=== PATIENT | male | born 1950 | race African-American/Black ===

== ENCOUNTER 2024-10-11 23:15 | Inpatient (IN) | payer MEDICARE ==
[~2024-10-11] VITALS: Ht 175.3 cm; Wt 72.6 kg
[2024-10-12] VITALS (67 sets, daily range): BP systolic 84–133; BP diastolic 50–109; PULSE 60–124; RESP 13–39; TEMP 36.5–36.9; O2SAT 92–100
[2024-10-12 00:43] LABS: CHLORIDE 102 mEq/L (98-107); POTASSIUM 4.1 mEq/L (3.5-5.1); SODIUM 142 mEq/L (136-145)
[2024-10-12 00:44] LABS: CARBON DIOXIDE 36 mEq/L (21-32)
[2024-10-12 00:45] LABS: CALCIUM 9.3 mg/dL (8.7-10.4)
[2024-10-12 00:46] LABS: BASOPHILS % 0.4 % (0.0-2.0); EOSINOPHILS % 0.5 % (0.0-5.0); LYMPHOCYTES % 29.2 % (20.0-50.0); MEAN CORPUSCULAR HEMOGLOBIN 28.9 pg (28.0-32.0); MEAN CORPUSCULAR VOLUME 93.4 fL (80.0-94.0); MEAN PLATELET VOLUME 10.6 fl (7.4-10.4); MONOCYTES % 8.1 % (2.0-8.0); NEUTROPHILS % 61.8 % (40.0-76.0); PLATELET 149 x1000/uL (130-400); RED CELL DISTRIBUTION WIDTH 13.8 % (11.6-14.6); WHITE BLOOD COUNT 8.7 x1000/uL (4.5-11.0)
[2024-10-12 00:50] LABS: CREATININE 0.6 mg/dL (0.6-1.3); GLUCOSE 113 mg/dL (70-105); UREA NITROGEN BLOOD 9 mg/dL (9-23)
[2024-10-12] MEDS: METHYLPREDNISOLONE SOD SUCC 125MG/2ML (ACT-O-VIAL) IV STA (00:51)
[2024-10-12] MEDS: DILTIAZEM HCL 5MG/ML 5ML VIAL IV ONE ×2 (00:51→02:05)
[2024-10-12 00:52] LABS: TROPONIN I HIGH SENSITIVITY 8 ng/L (3.0-53)
[2024-10-12 01:23] LABS: INR 0.9; PROTHROMBIN TIME 10.2 sec (9.6-11.0)
[2024-10-12] MEDS: SODIUM CHLORIDE 0.9% 1,000 ML IV ONE ×2 (02:04→02:45)
[2024-10-12] MEDS ORDERED: DILTIAZEM HCL 125 MG in DEXT 5% WATER 100 ML IV ONE ×2 (02:45→04:00)
[2024-10-12 03:57] LABS: BG BASE EXCESS 3.1 mmol/L (-2.0-3.0); BG CARBOXYHEMOGLOBIN 1.1 % (0.5-1.5); BG DEOXYHEMOGLOBIN 5.3 % (0.0-5.0); BG FRACTION INSPIRED OXYGEN 36; BG HCO3 ACT 30.9 mmol/L (21.0-28.0); BG OXYGEN SATURATION 94.6 % (94.0-98.0); BG OXYHEMOGLOBIN 93.6 % (94.0-98.0); BG PCO2 62.2 mmHg (35.0-48.0); BG PH 7.314 (7.350-7.450); BG PO2 73.9 mmHg (83.0-108.0); BG SAMPLE SITE LEFT RADIAL; BG VENT MODE NASAL CANNULA
[2024-10-12] MEDS ORDERED: ACETAMINOPHEN 325MG TABLET PO PRN ×2 (04:00)
[2024-10-12] MEDS ORDERED: CLONIDINE 0.1MG TABLET PO PRN (04:00)
[2024-10-12] MEDS ORDERED: AMIODARONE 360MG/200ML 200 ML IV SCH (04:00)
[2024-10-12] MEDS ORDERED: NA PHOS,M-B/NA PHOS,DI-BA ENEMA 118ML PR PRN (04:00)
[2024-10-12] MEDS ORDERED: ENOXAPARIN 40MG/0.4ML SYR SUBCUT SCH (04:00)
[2024-10-12] MEDS ORDERED: ONDANSETRON HCL 4MG/2ML INJ IV PRN (04:00)
[2024-10-12] MEDS ORDERED: AMIODARONE HCL 150 MG in DEXT 5% WATER 100 ML IV ONE (04:00)
[2024-10-12] MEDS ORDERED: MAGNESIUM/ALUMINUM HYDROXIDE/SIMETHICONE 30ML UDC PO PRN (04:00)
[2024-10-12] MEDS: AMIODARONE 150MG/100ML PREMIX IV SCH (04:15)
[2024-10-12] MEDS ORDERED: GUAIFENESIN 200MG/10ML SUGAR FREE UDC PO PRN (04:15)
[2024-10-12] MEDS: AMIODARONE HCL IV SCH (04:50)
[2024-10-12] MEDS: DEXT 5% IV SCH (04:50)
[2024-10-12] MEDS: WATER IV SCH (04:50)
[2024-10-12 05:01] LABS: IRON 51 ug/dL (65-175)
[2024-10-12 05:03] LABS: PHOSPHORUS 2.7 mg/dL (2.5-4.9)
[2024-10-12 05:04] LABS: TOTAL IRON BINDING CAPACITY 68 ug/dl (250-425)
[2024-10-12 05:07] LABS: FOLIC ACID (FOLATE) SERUM 12.73 ng/mL (>5.38)
[2024-10-12] MEDS: MAGNESIUM 1 G PREMIX 100 ML IV NR (05:15)
[2024-10-12] MEDS: ENOXAPARIN 80MG/0.8ML SYR SUBCUT SCH (05:16)
[2024-10-12] MEDS: DILTIAZEM HCL 90MG TABLET PO ONE (05:22)
[2024-10-12] MEDS: NOREPINEPHRINE 8MG/250ML PMX 250 ML IV PRN (05:35)
[2024-10-12] MEDS ORDERED: VASOPRESSIN 20 UNIT in SODIUM CHLORIDE 0.9% 99 ML IV PRN (05:45)
[2024-10-12] MEDS: MIDODRINE HCL 5MG TABLET PO SCH (05:45)
[2024-10-12] MEDS ORDERED: PHENYLEPHRINE 100 MG in DEXT 5% WATER 240 ML IV PRN (05:45)
[2024-10-12] MEDS: METHYLPREDNISOLONE SOD SUCC 40MG/ML (ACT-O-VIAL) IV SCH (07:09)
[2024-10-12] MEDS: AZITHROMYCIN 500MG/250ML 250 ML IV SCH (07:13)
[2024-10-12] MEDS: THEOPHYLLINE ANHYDROUS 80MG/15ML ORAL SYR PO SCH ×2 (07:14→18:04)
[2024-10-12] MEDS: BUDESONIDE 0.5MG/2ML NEB HHN SCH (08:33)
[2024-10-12] MEDS: IPRATROPIUM BROMIDE (0.02%) 0.5MG/2.5ML NEB HHN SCH (08:33)
[2024-10-12] MEDS: FAMOTIDINE 20MG/2ML VIAL IV SCH (09:52)
[2024-10-12] MEDS: TAMSULOSIN HCL 0.4MG SR CAPSULE PO SCH (09:53)
[2024-10-12] MEDS: LORATADINE 10MG TABLET PO SCH (09:53)
[2024-10-12 11:04] LABS: CLARITY URINE CLEAR (CLEAR); COLOR URINE YELLOW (YELLOW); GLUCOSE URINE 3+ (NEGATIVE); KETONES URINE 1+ (NEGATIVE); LEUKOCYTE ESTERASE URINE NEGATIVE (NEGATIVE); NITRITE URINE NEGATIVE (NEGATIVE); OCCULT BLOOD URINE NEGATIVE (NEGATIVE); PH URINE 5.5 (4.5-8.0); PROTEIN URINE NEGATIVE (NEGATIVE); SPECIFIC GRAVITY URINE 1.015 (1.005-1.030); UROBILINOGEN URINE 0.2 E.U./dL (0.2-1.0)
[2024-10-12 11:13] LABS: *AMPHETAMINES SCREEN URINE NEGATIVE (NEGATIVE); *BARBITURATES SCREEN URINE NEGATIVE (NEGATIVE); *BENZODIAZEPINES SCREEN URINE NEGATIVE (NEGATIVE); *COCAINE SCREEN URINE NEGATIVE (NEGATIVE); METHADONE URINE SCREEN NEGATIVE (NEGATIVE); OPIATES URINE SCREEN NEGATIVE (NEGATIVE); PHENCYCLIDINE URINE SCREEN NEGATIVE (NEGATIVE)
[2024-10-12 11:14] LABS: CANNABINOID URINE SCREEN NEGATIVE (NEGATIVE); ECSTASY MDMA SCREEN URINE NEGATIVE (NEGATIVE)
[2024-10-12 11:17] LABS: CREATINE KINASE MB FRACTION 3.1 ng/mL (0.5-3.6)
[2024-10-12 11:37] LABS: RBC URINE 0-2 /hpf (0-2); SQUAMOUS EPITHELIAL CELL URINE NONE SEEN /lpf (RARE/1+)
[2024-10-12 11:38] LABS: BACTERIA URINE TRACE; WBC URINE 0-2 /hpf (0-2)
[2024-10-12] MEDS ORDERED: MONTELUKAST SODIUM 10MG TABLET PO SCH (17:00)
[2024-10-12 17:24] LABS: CREATINE KINASE MB FRACTION 2.7 ng/mL (0.5-3.6)
[2024-10-12] MEDS: PNEUMOCOCCAL 20-VAL CONJ-DIP CRM 0.5ML IM ONE (18:11)
[2024-10-12 18:36] LABS: INFLUENZA TYPE A Presumptive Negative (Pres. Neg.); INFLUENZA TYPE B Presumptive Negative (Pres. Neg.)
[2024-10-12 18:37] LABS: RESPIRATORY SYNCYTIAL VIRUS Not Detected (Not Detectd)
[2024-10-13] VITALS (70 sets, daily range): BP systolic 86–141; BP diastolic 51–111; PULSE 51–103; RESP 14–30; TEMP 36.1–36.9; O2SAT 94–100
[2024-10-13 06:43] LABS: HEMOGLOBIN. 10.3 g/dL (14.0-18.0); MEAN CORPUSCULAR HEMOGLOBIN 28.2 pg (28.0-32.0); MEAN CORPUSCULAR HGB CONC 31.4 g/dL (31.0-37.0); MEAN CORPUSCULAR VOLUME 89.8 fL (80.0-94.0); MEAN PLATELET VOLUME 11.2 fl (7.4-10.4); PLATELET 118 x1000/uL (130-400); RED BLOOD CELL COUNT 3.67 mill/uL (4.7-6.1); RED CELL DISTRIBUTION WIDTH 13.5 % (11.6-14.6)
[2024-10-13 06:51] LABS: CHLORIDE 99 mEq/L (98-107); POTASSIUM 4.8 mEq/L (3.5-5.1); SODIUM 137 mEq/L (136-145)
[2024-10-13 06:52] LABS: CARBON DIOXIDE 29 mEq/L (21-32)
[2024-10-13 06:53] LABS: CALCIUM 9.2 mg/dL (8.7-10.4); DIFFERENTIAL COMMENT 1
[2024-10-13 06:56] LABS: TRIGLYCERIDE 73 mg/dL (0-150)
[2024-10-13 06:57] LABS: CREATININE 0.7 mg/dL (0.6-1.3); GLUCOSE 126 mg/dL (70-105); T4 FREE 0.98 ng/dL (0.89-1.76)
[2024-10-13 06:58] LABS: LDL CHOLESTEROL 83 mg/dL (5-100); UREA NITROGEN BLOOD 12 mg/dL (9-23)
[2024-10-13 06:59] LABS: ALANINE AMINOTRANSFERASE 13 IU/L (10-49); ALBUMIN 3.3 g/dL (3.2-4.8); ASPARTATE AMINOTRANSFERASE 16 IU/L (<34); CHOLESTEROL 159 mg/dL (<200)
[2024-10-13 07:00] LABS: BILIRUBIN DIRECT 0.2 mg/dL (<=3.0); BILIRUBIN TOTAL 0.7 mg/dL (0.1-1.0); HDL CHOLESTEROL 54 mg/dL (>55); PROTEIN TOTAL 5.8 g/dL (6.0-8.3)
[2024-10-13] MEDS: AZITHROMYCIN 500MG/250ML 250 ML IV SCH (08:41)
[2024-10-13] MEDS: AMIODARONE 200MG TABLET PO SCH (08:41)
[2024-10-13] MEDS ORDERED: LORA10TA7 MT (12:02)
[2024-10-13] MEDS ORDERED: PRED5TAB MT (12:02)
[2024-10-13] MEDS ORDERED: LEVA15HF6 IH (12:02)
[2024-10-13] MEDS ORDERED: AZEL23SP BOTHNSTRLS (12:02)
[2024-10-13] MEDS ORDERED: ARFO15VI2 NEB (12:02)
[2024-10-13] MEDS ORDERED: REVE175V IH (12:02)
[2024-10-13] MEDS ORDERED: TAMS-11 PO (12:02)
[2024-10-13 16:15] LABS: CREATINE KINASE MB FRACTION 3.4 ng/mL (0.5-3.6)
[2024-10-13 16:19] LABS: T4 FREE 0.95 ng/dL (0.89-1.76)
[2024-10-14] VITALS (9 sets, daily range): BP systolic 110–170; BP diastolic 65–98; PULSE 58–103; RESP 17–38; TEMP 36.5–36.7; O2SAT 93–100
[2024-10-14 08:17] LABS: CREATINE KINASE MB FRACTION 2.7 ng/mL (0.5-3.6)
[2024-10-14 08:18] LABS: DIFFERENTIAL COMMENT 0; HEMOGLOBIN. 12.6 g/dL (14.0-18.0); LYMPHOCYTES % 7.9 % (20.0-50.0); MEAN CORPUSCULAR HEMOGLOBIN 28.7 pg (28.0-32.0); MEAN CORPUSCULAR HGB CONC 31.5 g/dL (31.0-37.0); MEAN CORPUSCULAR VOLUME 90.9 fL (80.0-94.0); MEAN PLATELET VOLUME 11.4 fl (7.4-10.4); MONOCYTES % 3.3 % (2.0-8.0); NEUTROPHILS % 88.8 % (40.0-76.0); PLATELET 150 x1000/uL (130-400); RED CELL DISTRIBUTION WIDTH 13.9 % (11.6-14.6); TROPONIN I HIGH SENSITIVITY 10 ng/L (3.0-53); WHITE BLOOD COUNT 10.9 x1000/uL (4.5-11.0)
[2024-10-14 08:30] LABS: CHLORIDE 97 mEq/L (98-107); POTASSIUM 4.8 mEq/L (3.5-5.1); SODIUM 138 mEq/L (136-145)
[2024-10-14 08:31] LABS: CALCIUM 9.2 mg/dL (8.7-10.4); CARBON DIOXIDE 33 mEq/L (21-32)
[2024-10-14 08:36] LABS: CREATININE 0.7 mg/dL (0.6-1.3); GLUCOSE 155 mg/dL (70-105); UREA NITROGEN BLOOD 10 mg/dL (9-23)
[2024-10-14 08:38] LABS: CREATINE KINASE 99 IU/L (46-171)
[2024-10-14] MEDS: MIDODRINE HCL 2.5MG TABLET PO SCH (09:34)
[2024-10-14] MEDS: FERROUS SULFATE 325MG TABLET PO SCH (09:34)
[2024-10-14] MEDS ORDERED: AMI2 PO (10:44)
[2024-10-14] MEDS ORDERED: P20 MT (10:44)
[2024-10-14] MEDS ORDERED: PRED10TA MT (10:44)
[2024-10-14 17:18] LABS: PLATELET ESTIMATE DECREASED
[2024-10-14] MEDS ORDERED: METHYLPREDNISOLONE SOD SUCC 40MG/ML (ACT-O-VIAL) IV SCH (18:00)
== END 2024-10-14 12:40 | disposition home or self-care (01) | DRG 189 ==
LOC: ER 23:20 → MICUSO 10-12 02:33 → EDBEDREQTM 10-12 03:51 → EDBEDREQSVC 10-12 03:51 → 5EST 10-13 17:45
PROVIDERS: ADMIT Internal Medicine; ATTEND Internal Medicine
PROC: 5A09357 Assistance with Respiratory Ventilation, Less than 24 Consecutive Hours, Continuous Positive Airway Pressure (ICD-10-PCS; principal; 2024-10-12)
PROC: 5A09357 Assistance with Respiratory Ventilation, Less than 24 Consecutive Hours, Continuous Positive Airway Pressure (ICD-10-PCS; 2024-10-13)
PROC: 5A09357 Assistance with Respiratory Ventilation, Less than 24 Consecutive Hours, Continuous Positive Airway Pressure (ICD-10-PCS; 2024-10-14)
DX: J96.01 Acute respiratory failure with hypoxia (principal); J44.1 Chronic obstructive pulmonary disease with (acute) exacerbation; J96.02 Acute respiratory failure with hypercapnia; I48.0 Paroxysmal atrial fibrillation; D50.9 Iron deficiency anemia, unspecified; N40.0 Benign prostatic hyperplasia without lower urinary tract symptoms; I95.9 Hypotension, unspecified; Z99.81 Dependence on supplemental oxygen; Z79.899 Other long term (current) drug therapy; Z85.118 Personal history of other malignant neoplasm of bronchus and lung; Z87.891 Personal history of nicotine dependence; Z88.0 Allergy status to penicillin
CPT/HCPCS: 36415; 36600; 71045; 80048; 80061; 80076; 80305; 81003; 82375; 82550; 82553; 82728; 82746; 82805; 83036; 83540; 83550; 83735; 83880; 84100; 84145; 84439; 84443; 84481; 84484; 85025; 85379; 87420; 87804; 90732; 93005; 93306; 93970; 94070; 94640; 94660; 94664; 98960; 99291; A4606; J0282; J0456; J1650; J2919; J2920; J3475; J3490; J7030; J7060; J7626